=== PATIENT | female | born 2000 | race Two or more races ===

== ENCOUNTER 2021-10-31 20:31 | Inpatient (IN) | payer MEDICAID, OTHER ==
[~2021-10-31] VITALS: Ht 154.9 cm; Wt 102.1 kg
[2021-10-31] MEDS ORDERED: LACTATED RINGER'S 1,500 ML IV ONE (20:45)
[2021-10-31] MEDS ORDERED: ACETAMINOPHEN 325 MG TAB PO ONE (21:15)
[2021-10-31 21:16] LABS: Urine Bacteria FEW /hpf (None Seen); Urine Blood 2+ /uL (Negative); Urine Mucus FEW (None Seen); Urine Specific Gravity 1.027 (1.001-1.035); Urine WBC 147 /hpf (0 - 5)
[2021-10-31 21:39] LABS: Basophils # (auto) 0 10 ^3/uL (0-0.2); Basophils % (auto) 0.2 % (0.0-2.0); Eosinophils # (auto) 0 10 ^3/uL (0-0.8); Hematocrit 37.8 % (36.0-46.0); Hemoglobin 12.9 g/dL (12.2-16.2); Lymphocytes # (auto) 0.5 10 ^3/uL (0.4-5.4); Mean Corpuscular Hemoglobin 30.7 pg (28.0-32.0); Mean Corpuscular Volume 90.2 fL (80.0-100.0); Monocytes # (auto) 0.6 10 ^3/uL (0-1.3); Monocytes % (auto) 3.4 % (0.0-12.0); Neutrophils % (auto) 93.4 % (37.0-80.0); Red Blood Cells 4.19 10^6/uL (4.0-5.20); Red Cell Distribution Width 13.2 % (11.8-14.3); White Blood Cell 17.2 10^3/uL (4.4-10.8)
[2021-10-31] MEDS ORDERED: VANCOMYCIN PER PHARMACY 0 MG IV SCH (21:45)
[2021-10-31] MEDS ORDERED: PIPERACILLIN-TAZO 4.5GM 100 ML IV SCH (22:00)
[2021-10-31 22:03] LABS: Albumin 3.2 g/dL (3.4-5.0); Calcium 8.3 mg/dL (8.5-10.1); Potassium 3.5 mmol/L (3.5-5.1)
[2021-10-31 22:06] LABS: BUN/Creatinine Ratio 10.8; Bilirubin, Total 0.8 mg/dL (0.2-1.0); Total Protein 6.9 g/dL (6.4-8.2)
[2021-10-31] MEDS ORDERED: VANCOMYCIN 1GM/250ML 250 ML IV ONE (23:00)
[2021-11-01] MEDS ORDERED: SODIUM CHLORIDE 0.9% 500 ML IV ONE (00:30)
[2021-11-01] MEDS ORDERED: KETOROLAC TROMETH 30 MG/ML 1ML VIAL IV ONE (01:45)
[2021-11-01] MEDS ORDERED: PHEN99.5 PO (02:19)
[2021-11-01] MEDS ORDERED: CIPR-214 PO (02:19)
[2021-11-01] MEDS ORDERED: PHENAZOPYRIDINE HCL 100 MG TAB PO ONE (02:30)
[2021-11-01] MEDS ORDERED: diphenhdrAMINE HCL 50 MG/1 ML VL IV ONE (02:45)
[2021-11-01] MEDS ORDERED: SODIUM CHLORIDE 0.9% 1,000 ML IV ONE (02:45)
[2021-11-01] MEDS ORDERED: DEXTROSE (50%) 50ML SYRG IV PRN (03:15)
[2021-11-01] MEDS ORDERED: VANCOMYCIN PER PHARMACY 0 MG IV SCH (03:15)
[2021-11-01] MEDS ORDERED: DOCUSATE SOD 100 MG CAP PO PRN (03:15)
[2021-11-01] MEDS ORDERED: HYDROcodone-ACET 5/325MG TAB PO PRN (03:15)
[2021-11-01] MEDS: ACETAMINOPHEN 325 MG TAB PO PRN ×3 (03:40→22:46)
[2021-11-01] MEDS ORDERED: MORPHINE SULFATE INJ 2 MG/ml SYRG IV PRN ×3 (03:45→13:00)
[2021-11-01] MEDS: ONDANSETRON HCL 4 MG/2 ML VIAL IV PRN ×2 (03:56→12:15)
[2021-11-01 04:20] LABS: Amphetamine Screen, Urine NEGATIVE (NEGATIVE); Barbiturate Scree,Urine NEGATIVE (NEGATIVE); Benzodiazephine Screen, Urine NEGATIVE (NEGATIVE); Cannabinoid Screen, Urine NEGATIVE (NEGATIVE); Cocaine Screen, Urine NEGATIVE (NEGATIVE); Opiate Scree,Urine NEGATIVE (NEGATIVE); Phencyclidine Screen, Urine NEGATIVE (NEGATIVE)
[2021-11-01] MEDS: SODIUM CHLORIDE 0.9% 1,000 ML IV SCH ×2 (04:49→19:55)
[2021-11-01] MEDS ORDERED: IBUPROFEN 600 MG TAB PO ONE (05:15)
[2021-11-01] MEDS ORDERED: NITROGLYCERIN 0.4 MG SL TAB SL PRN (05:30)
[2021-11-01] MEDS ORDERED: PIPERACILLIN-TAZOB 2.25GM 50 ML IV SCH (06:00)
[2021-11-01 06:04] LABS: Basophils # (auto) 0 10 ^3/uL (0-0.2); Basophils % (auto) 0.1 % (0.0-2.0); Eosinophils # (auto) 0 10 ^3/uL (0-0.8); Hematocrit 38.6 % (36.0-46.0); Lymphocytes # (auto) 0.7 10 ^3/uL (0.4-5.4); Lymphocytes % (auto) 3.6 % (10.0-50.0); Mean Corpuscular Hemoglobin 30.7 pg (28.0-32.0); Mean Corpuscular Hgb Conc. 33.7 g/dL (32.0-36.0); Mean Corpuscular Volume 91.1 fL (80.0-100.0); Monocytes # (auto) 1.4 10 ^3/uL (0-1.3); Monocytes % (auto) 7.2 % (0.0-12.0); Neutrophils # (auto) 16.7 10 ^3/uL (1.6-8.6); Neutrophils % (auto) 89.1 % (37.0-80.0); Red Blood Cells 4.24 10^6/uL (4.0-5.20); Red Cell Distribution Width 13.2 % (11.8-14.3); White Blood Cell 18.7 10^3/uL (4.4-10.8)
[2021-11-01 06:13] LABS: Albumin 3.1 g/dL (3.4-5.0); BUN/Creatinine Ratio 8.6; Calcium 8.3 mg/dL (8.5-10.1); Potassium 3.9 mmol/L (3.5-5.1)
[2021-11-01 06:15] LABS: Bilirubin, Total 0.8 mg/dL (0.2-1.0); Total Protein 6.9 g/dL (6.4-8.2)
[2021-11-01] MEDS: ACCU-CHEK COMFORT CURVE STRIP VI SCH ×4 (06:54→22:43)
[2021-11-01] MEDS: InsuLIN REG 1unit/0.01ml Soln (100units/ml) SC SCH ×4 (06:54→22:00)
[2021-11-01] MEDS: MULTIPLE VITAMIN TAB PO SCH (10:22)
[2021-11-01] MEDS: ZINC SULFATE 220mg CAP or TAB PO SCH (10:22)
[2021-11-01] MEDS: FAMOTIDINE (10MG/ML) 2ML VL IV SCH (10:22)
[2021-11-01] MEDS: ASCORBIC ACID 500 MG TAB PO SCH ×2 (10:23→22:33)
[2021-11-01] MEDS ORDERED: cefTRIAXone 1GM/50ML D5W 50 ML IV ONE (12:15)
[2021-11-01 15:31] VITALS: BP 119/50
[2021-11-01] MEDS: KETOROLAC TROMETH 30 MG/ML 1ML VIAL IV PRN (16:45)
[2021-11-01 17:00] VITALS: BP 126/61
[2021-11-01 20:00] VITALS: BP 91/50
[2021-11-01 21:47] VITALS: BP 91/50
[2021-11-02] MEDS: KETOROLAC TROMETH 30 MG/ML 1ML VIAL IV PRN ×4 (02:09→23:14)
[2021-11-02] MEDS: ACETAMINOPHEN 325 MG TAB PO PRN ×2 (04:52→17:00)
[2021-11-02 05:00] VITALS: BP 111/85
[2021-11-02 06:35] LABS: Potassium 3.7 mmol/L (3.5-5.1)
[2021-11-02] MEDS: ACCU-CHEK COMFORT CURVE STRIP VI SCH (06:35)
[2021-11-02] MEDS: InsuLIN REG 1unit/0.01ml Soln (100units/ml) SC SCH (06:36)
[2021-11-02 06:39] LABS: Albumin 2.8 g/dL (3.4-5.0); BUN/Creatinine Ratio 11.8; Calcium 8.5 mg/dL (8.5-10.1)
[2021-11-02 06:42] LABS: Basophils # (auto) 0 10 ^3/uL (0-0.2); Basophils % (auto) 0.1 % (0.0-2.0); Bilirubin, Total 0.6 mg/dL (0.2-1.0); Eosinophils # (auto) 0 10 ^3/uL (0-0.8); Hematocrit 36.4 % (36.0-46.0); Hemoglobin 12.3 g/dL (12.2-16.2); Lymphocytes # (auto) 0.9 10 ^3/uL (0.4-5.4); Mean Corpuscular Hemoglobin 30.6 pg (28.0-32.0); Mean Corpuscular Hgb Conc. 33.8 g/dL (32.0-36.0); Mean Corpuscular Volume 90.7 fL (80.0-100.0); Monocytes # (auto) 1.7 10 ^3/uL (0-1.3); Monocytes % (auto) 9.1 % (0.0-12.0); Neutrophils # (auto) 15.7 10 ^3/uL (1.6-8.6); Neutrophils % (auto) 85.8 % (37.0-80.0); Red Blood Cells 4.02 10^6/uL (4.0-5.20); Red Cell Distribution Width 13.4 % (11.8-14.3); Total Protein 6.3 g/dL (6.4-8.2); White Blood Cell 18.3 10^3/uL (4.4-10.8)
[2021-11-02 08:30] VITALS: BP 89/50
[2021-11-02] MEDS: FAMOTIDINE (10MG/ML) 2ML VL IV SCH (09:21)
[2021-11-02] MEDS: cefTRIAXone 1GM/50ML D5W 50 ML IV SCH (09:21)
[2021-11-02] MEDS: MULTIPLE VITAMIN TAB PO SCH (09:21)
[2021-11-02] MEDS: ASCORBIC ACID 500 MG TAB PO SCH (09:21)
[2021-11-02] MEDS: ZINC SULFATE 220mg CAP or TAB PO SCH (09:21)
[2021-11-02] MEDS: SODIUM CHLORIDE 0.9% 1,000 ML IV SCH ×3 (11:17→23:55)
[2021-11-02 13:00] VITALS: BP 94/57
[2021-11-02] MEDS ORDERED: ERTAPENEM SOD INJ 1 GM in SODIUM CHL 0.9% 50 ML IV ONE (14:00)
[2021-11-02 17:00] VITALS: BP 131/102
[2021-11-02 20:00] VITALS: BP 91/50
[2021-11-03] MEDS: ASCORBIC ACID 500 MG TAB PO SCH ×3 (00:56→21:27)
[2021-11-03 01:04] VITALS: BP 109/63
[2021-11-03 05:09] VITALS: BP 96/44
[2021-11-03] MEDS: KETOROLAC TROMETH 30 MG/ML 1ML VIAL IV PRN ×2 (06:08→18:55)
[2021-11-03] MEDS: ACETAMINOPHEN 325 MG TAB PO PRN ×3 (06:09→20:05)
[2021-11-03 06:36] LABS: Basophils # (auto) 0 10 ^3/uL (0-0.2); Basophils % (auto) 0.3 % (0.0-2.0); Eosinophils # (auto) 0 10 ^3/uL (0-0.8); Eosinophils % (auto) 0.3 % (0.0-7.0); Hematocrit 32.9 % (36.0-46.0); Hemoglobin 11.3 g/dL (12.2-16.2); Lymphocytes # (auto) 1.5 10 ^3/uL (0.4-5.4); Lymphocytes % (auto) 12.4 % (10.0-50.0); Mean Corpuscular Hemoglobin 30.7 pg (28.0-32.0); Mean Corpuscular Hgb Conc. 34.4 g/dL (32.0-36.0); Mean Corpuscular Volume 89.1 fL (80.0-100.0); Monocytes # (auto) 1.4 10 ^3/uL (0-1.3); Monocytes % (auto) 11.3 % (0.0-12.0); Neutrophils # (auto) 9.3 10 ^3/uL (1.6-8.6); Neutrophils % (auto) 75.7 % (37.0-80.0); Red Blood Cells 3.69 10^6/uL (4.0-5.20); White Blood Cell 12.3 10^3/uL (4.4-10.8)
[2021-11-03] MEDS: cefTRIAXone 1GM/50ML D5W 50 ML IV SCH (09:10)
[2021-11-03] MEDS: ERTAPENEM SOD INJ 1 GM in SODIUM CHL 0.9% 50 ML IV SCH (09:10)
[2021-11-03] MEDS: SODIUM CHLORIDE 0.9% 1,000 ML IV SCH ×3 (09:10→20:33)
[2021-11-03] MEDS: MULTIPLE VITAMIN TAB PO SCH (09:11)
[2021-11-03] MEDS: FAMOTIDINE (10MG/ML) 2ML VL IV SCH (09:11)
[2021-11-03] MEDS: ZINC SULFATE 220mg CAP or TAB PO SCH (09:11)
[2021-11-03 13:00] VITALS: BP 118/73
[2021-11-03 17:00] VITALS: BP 95/74
[2021-11-03 22:00] VITALS: BP 101/43
[2021-11-04] MEDS: SODIUM CHLORIDE 0.9% 1,000 ML IV SCH ×2 (02:10→10:01)
[2021-11-04] MEDS: ACETAMINOPHEN 325 MG TAB PO PRN (04:34)
[2021-11-04] MEDS: ONDANSETRON HCL 4 MG/2 ML VIAL IV PRN (04:43)
[2021-11-04 05:00] VITALS: BP 122/59
[2021-11-04 07:31] LABS: Basophils # (auto) 0 10 ^3/uL (0-0.2); Basophils % (auto) 0.4 % (0.0-2.0); Eosinophils # (auto) 0 10 ^3/uL (0-0.8); Eosinophils % (auto) 0.4 % (0.0-7.0); Hematocrit 30.2 % (36.0-46.0); Hemoglobin 10.5 g/dL (12.2-16.2); Lymphocytes # (auto) 1.1 10 ^3/uL (0.4-5.4); Mean Corpuscular Hgb Conc. 34.7 g/dL (32.0-36.0); Mean Corpuscular Volume 89.3 fL (80.0-100.0); Monocytes # (auto) 0.9 10 ^3/uL (0-1.3); Monocytes % (auto) 10.8 % (0.0-12.0); Neutrophils # (auto) 6.2 10 ^3/uL (1.6-8.6); Neutrophils % (auto) 75.4 % (37.0-80.0); Red Blood Cells 3.39 10^6/uL (4.0-5.20); Red Cell Distribution Width 13.2 % (11.8-14.3); White Blood Cell 8.2 10^3/uL (4.4-10.8)
[2021-11-04 09:00] VITALS: BP 108/73
[2021-11-04] MEDS: FAMOTIDINE (10MG/ML) 2ML VL IV SCH ×2 (09:44→10:02)
[2021-11-04] MEDS: MULTIPLE VITAMIN TAB PO SCH (10:01)
[2021-11-04] MEDS: ZINC SULFATE 220mg CAP or TAB PO SCH (10:01)
[2021-11-04] MEDS: ERTAPENEM SOD INJ 1 GM in SODIUM CHL 0.9% 50 ML IV SCH (10:01)
[2021-11-04] MEDS: ASCORBIC ACID 500 MG TAB PO SCH (10:02)
[2021-11-04] MEDS ORDERED: TRAM50TA2 PO (10:57)
[2021-11-04] MEDS ORDERED: NITR-87 PO (10:57)
[2021-11-04 12:07] VITALS: BP 108/73
[2021-11-04 13:00] VITALS: BP 127/80
== END 2021-11-04 16:50 | disposition home or self-care (01) | DRG 720 ==
LOC: ER 20:31 → OVERFLOW 11-01 05:26 → WEST WING 11-01 15:26
PROVIDERS: ADMIT Nurse Practitioner Family; ATTEND Family Medicine
DX: A41.9 Sepsis, unspecified organism (principal); R65.21 Severe sepsis with septic shock; N10 Acute pyelonephritis; R73.9 Hyperglycemia, unspecified; Z20.822 Contact with and (suspected) exposure to COVID-19; B96.20 Unspecified Escherichia coli [E. coli] as the cause of diseases classified elsewhere; Z16.12 Extended spectrum beta lactamase (ESBL) resistance
CPT/HCPCS: 36415; 70450; 71045; 74177; 76856; 80053; 80307; 81001; 82962; 83036; 83605; 84484; 84702; 85025; 85384; 86850; 86900; 86901; 87040; 87086; 87088; 87186; 93005; 96361; 96365; 96366; 96367; 96375; 99291; G0378; J0696; J1335; J1885; J2405; J2543; J3490

== ENCOUNTER 2022-10-12 01:09 | Emergency (ER) | payer MEDICAID ==
[~2022-10-12] VITALS: Ht 160 cm; Wt 94.7 kg
[~2022-10-12 01:09] MED LIST: CIPR-214 PO; NITR-87 PO; PHEN99.5 PO; TRAM50TA2 PO
[2022-10-12 02:46] LABS: Basophils # (auto) 0.1 10 ^3/uL (0-0.2); Basophils % (auto) 0.5 % (0.0-2.0); Eosinophils # (auto) 0.1 10 ^3/uL (0-0.8); Hematocrit 39.1 % (36.0-46.0); Hemoglobin 13.4 g/dL (12.2-16.2); Lymphocytes # (auto) 2.4 10 ^3/uL (0.4-5.4); Lymphocytes % (auto) 22.5 % (10.0-50.0); Mean Corpuscular Hemoglobin 31.1 pg (28.0-32.0); Mean Corpuscular Hgb Conc. 34.3 g/dL (32.0-36.0); Mean Corpuscular Volume 90.8 fL (80.0-100.0); Monocytes # (auto) 0.6 10 ^3/uL (0-1.3); Monocytes % (auto) 5.8 % (0.0-12.0); Neutrophils # (auto) 7.4 10 ^3/uL (1.6-8.6); Neutrophils % (auto) 70.2 % (37.0-80.0); Nucleated Red Blood Cells % 0.2 %; Red Blood Cells 4.31 10^6/uL (4.0-5.20); Red Cell Distribution Width 13.4 % (11.8-14.3); White Blood Cell 10.5 10^3/uL (4.4-10.8)
[2022-10-12 03:06] LABS: Urine Bacteria FEW /hpf (None Seen); Urine Blood 3+ /uL (Negative); Urine Specific Gravity 1.005 (1.001-1.035); Urine WBC 16 /hpf (0 - 5)
[2022-10-12 03:10] LABS: Albumin 3.4 g/dL (3.4-5.0); Calcium 8.5 mg/dL (8.5-10.1); Potassium 3.7 mmol/L (3.5-5.1)
[2022-10-12 03:15] LABS: BUN/Creatinine Ratio 22.4 (10.0-20.0); Bilirubin, Total 0.4 mg/dL (0.2-1.0); Total Protein 7.2 g/dL (6.4-8.2)
[2022-10-12] MEDS ORDERED: CEFP200T15 PO (06:57)
[2022-10-12 07:35] VITALS: BP 104/60
== END 2022-10-12 07:42 | disposition home or self-care (01) ==
LOC: ER 01:09
DX: O20.0 Threatened abortion (principal); N30.00 Acute cystitis without hematuria; Z88.6 Allergy status to analgesic agent; Z3A.13 13 weeks gestation of pregnancy
CPT/HCPCS: 36415; 76801; 80053; 81001; 84702; 85025; 86850; 86900; 86901